=== PATIENT | male | born 1945 | race Caucasian/White ===

== ENCOUNTER → 2018-06-28 | Outpatient (CLI) | payer MEDICARE, OTHER ==
[~2018-06-28] MED LIST: ASPI325EC PO; CARV6.25 PO; FURO40 PO; GLIP5 PO; Lisinopril2.5 MG PO; NOVOLIN N SC; Novolin R100 UNIT/M SC; TRIHYD5075 PO
[2018-06-28 15:44] LABS: Albumin, Blood 3.8 g/dL (3.4-5.0); BASOPHILS ABSOLUTE AUTO 0.07 K/mm3 (0.00-0.23); BASOPHILS PERCENT AUTO 1 % (0-2); Bilirubin, Total 0.6 mg/dL (0.1-1.0); Bun/Creatinine Ratio 20.6 (12.0-20.0); Creatinine, Blood 2.14 mg/dL (0.60-1.20); EOSINOPHILS ABSOLUTE AUTO 0.15 K/mm3 (0.00-0.68); EOSINOPHILS PERCENT AUTO 2 % (0-6); Globulin, Blood 3.8 g/dL (2.2-4.0); Hematocrit 44.9 % (37.0-53.0); Hemoglobin 16.5 g/dL (13.5-17.5); IMMATURE GRAN ABSOLUTE AUTO 0.07 K/mm3 (0.00-0.10); IMMATURE GRAN PERCENT AUTO 1 % (0-1); LYMPHOCYTES ABSOLUTE AUTO 2.09 K/mm3 (0.84-5.20); LYMPHOCYTES PERCENT AUTO 22 % (21-46); MONOCYTES ABSOLUTE AUTO 0.91 K/mm3 (0.16-1.47); MONOCYTES PERCENT AUTO 10 % (4-13); Mean Corpuscular HGB 32.7 pg (26.0-34.0); Mean Corpuscular HGB Conc 36.7 g/dL (31.5-36.5); Mean Corpuscular Volume 89 fL (80-100); NEUTROPHILS ABSOLUTE AUTO 6.27 K/mm3 (1.96-9.15); NEUTROPHILS PERCENT AUTO 66 % (41-73); Platelet Count 150 K/mm3 (150-400); Potassium, Blood 5.1 mmol/L (3.5-5.5); RDW Coefficient Variation 12.6 % (11.7-14.2); RDW Standard Deviation 40.6 fL (35.1-46.3); Red Blood Cell Count 5.05 M/mm3 (4.30-5.90); Total Protein, Blood 7.6 g/dL (6.4-8.2); White Blood Cell Count 9.56 K/mm3 (4.00-11.30)
[2018-06-28 16:36] LABS: Mean Platelet Volume 13.8 fL (9.1-12.4)
== END ==
LOC: LAB EV 15:30 → LAB SHORT 15:30
PROVIDERS: Emergency Medicine
DX: E11.65 Type 2 diabetes mellitus with hyperglycemia (principal)
CPT/HCPCS: 80053; 83036; 85025

== ENCOUNTER 2021-11-26 07:23 | Day surgery (SDC) | payer MEDICARE, BC ==
[~2021-11-26] VITALS: Ht 175.3 cm; Wt 98.0 kg
[2021-11-26] MEDS ORDERED: ELIQUIS5 M2 PO (07:47)
[2021-11-26] MEDS ORDERED: BASAGLAR K100 UNIT/1 SC (07:47)
[2021-11-26] MEDS ORDERED: ATOR40TA PO (07:47)
[2021-11-26] MEDS ORDERED: FARXIGA10 MG PO (07:48)
[2021-11-26] MEDS ORDERED: Isosorbide Mono30 MG PO (07:48)
[2021-11-26] MEDS ORDERED: DHEA25 M1 PO (07:49)
[2021-11-26] MEDS ORDERED: REPA2 PO (07:50)
[2021-11-26] MEDS ORDERED: TORSE20 PO (07:51)
[2021-11-26] MEDS ORDERED: ENTRESTO 24 MG1 EACH PO (07:51)
--- NOTE | 2021-11-26 09:00 | NUR ---
PT BACK TO RECOVERY ROOM VIA RECLINER AFTER PROCEDURE. LEFT CHEST SITE CLEAN AND DRY, NO BLEEDING OR SWELLING. PT AWAKE AND ALERT, COFFEE GIVEN PER REQUEST.
--- NOTE | 2021-11-26 10:04 | NUR ---
PT EATING BREAKFAST, DENIES PAIN OR NEEDS. VSS, SPOUSE SITTING NEXT TO PATIENT. CALL LIGHT IN REACH.
--- NOTE | 2021-11-26 10:50 | NUR ---
IV DC'D, CATH INTACT. PT AND SPOUSE GIVEN DC INSTRUCTIONS AND FOLLOW UP INFO, CERBALIZED UNDERSTANDING. LEFT CHEST SITE REMAINS CLEAN AND DRY, PT DENIES DISCOMFORT AT SITE. OUT TO CAR VIA WHEELCHAIR.
== END 2021-11-26 10:50 | disposition home or self-care (01) ==
LOC: MHTC 07:23
DX: Z45.018 Encounter for adjustment and management of other part of cardiac pacemaker (principal); I48.19 Other persistent atrial fibrillation; I50.9 Heart failure, unspecified; N18.9 Chronic kidney disease, unspecified; E11.22 Type 2 diabetes mellitus with diabetic chronic kidney disease; Z88.8 Allergy status to other drugs, medicaments and biological substances; Z79.01 Long term (current) use of anticoagulants; Z79.899 Other long term (current) drug therapy
CPT/HCPCS: 33227; 99152; 99153; C1781; C1786; J0690; J1644; J2250; J3010; J7040

== ENCOUNTER → 2022-02-19 | Outpatient (CLI) | payer MEDICARE, BC ==
[~2022-02-19] MED LIST changes: +ATOR40TA PO; +BASAGLAR K100 UNIT/1 SC; +DHEA25 M1 PO; +ELIQUIS5 M2 PO; +ENTRESTO 24 MG1 EACH PO; +FARXIGA10 MG PO; +Isosorbide Mono30 MG PO; +REPA2 PO; +TORSE20 PO
[2022-02-19 12:36] LABS: BASOPHILS ABSOLUTE AUTO 0.05 K/mm3 (0.00-0.23); BASOPHILS PERCENT AUTO 1 % (0-2); EOSINOPHILS ABSOLUTE AUTO 0.07 K/mm3 (0.00-0.68); EOSINOPHILS PERCENT AUTO 1 % (0-6); Hemoglobin 14.7 g/dL (13.5-17.5); IMMATURE GRAN ABSOLUTE AUTO 0.01 K/mm3 (0.00-0.10); IMMATURE GRAN PERCENT AUTO 0 % (0-1); LYMPHOCYTES ABSOLUTE AUTO 1.68 K/mm3 (0.84-5.20); LYMPHOCYTES PERCENT AUTO 26 % (21-46); MONOCYTES ABSOLUTE AUTO 0.67 K/mm3 (0.16-1.47); MONOCYTES PERCENT AUTO 11 % (4-13); Mean Corpuscular HGB Conc 34.2 g/dL (31.5-36.5); Mean Corpuscular Volume 94 fL (80-100); NEUTROPHILS ABSOLUTE AUTO 3.91 K/mm3 (1.96-9.15); NEUTROPHILS PERCENT AUTO 61 % (41-73); Platelet Count 108 K/mm3 (150-400); RDW Coefficient Variation 13.1 % (11.7-14.2); RDW Standard Deviation 44.6 fL (35.1-46.3); White Blood Cell Count 6.39 K/mm3 (4.00-11.30)
[2022-02-19 12:38] LABS: Appearance, Urine Clear (Clear); Bilirubin, Urine Neg (Neg); Blood, Urine Neg (Neg); Color, Urine Yellow (P-Yellow); Glucose Qualitative, Urine Neg (Neg); Ketones, Urine Neg (Neg); Leukocyte Esterase, Urine Neg (Neg); Nitrite, Urine Neg (Neg); Protein, Urine Neg (Neg); Source, Urine Clean Catch; Specific Gravity, Urine 1.015 (1.003-1.022); Urobilinogen, Urine NORM (Normal)
[2022-02-19 12:44] LABS: Mean Platelet Volume 13.6 fL (9.1-12.4)
[2022-02-19 13:12] LABS: Protein, Urine Random 9.6 mg/dL (0.0-11.9); Protein/Creat Ratio, Ur Random 0.1
[2022-02-19 13:13] LABS: Albumin, Blood 3.5 g/dL (3.4-5.0); Anion Gap 8 mmol/L (6-16); Blood Urea Nitrogen 35 mg/dL (8-24); Bun/Creatinine Ratio 22.6 (12.0-20.0); CO2, Blood 26 mmol/L (21-32); Calcium, Blood 8.6 mg/dL (8.5-10.1); Chloride, Blood 106 mmol/L (98-108); Creatinine, Blood 1.55 mg/dL (0.60-1.20); Glomerular Filtration Rate 46 (60-); Glucose, Blood 222 mg/dL (70-99); Phosphorus, Blood 3.2 mg/dL (2.5-4.9); Potassium, Blood 4.3 mmol/L (3.5-5.5); Sodium, Blood 140 mmol/L (136-145)
== END | disposition home or self-care (01) ==
LOC: LAB 10:48 → LAB SHORT 10:48
PROVIDERS: Internal Medicine Nephrology
DX: N18.31 Chronic kidney disease, stage 3a (principal)
CPT/HCPCS: 36415; 80069; 81003; 82570; 83970; 84156; 85025

== ENCOUNTER 2023-11-04 12:02 | Inpatient (IN) | payer MEDICARE, OTHER ==
[~2023-11-04] VITALS: Ht 175.3 cm; Wt 89.5 kg
[~2023-11-04 12:02] MED LIST changes: +CEFU500T30 PO; +DIGOX125 MC1 PO; +GUAI600T33 PO; +INSULANI SC; +SPIR25 PO; +THERA-D2000 UNIT PO; +TRIDERM28.4 GM TOP; +VISBIOME 112.51 EACH PO
[2023-11-04 12:20] VITALS: BP 125/88
[2023-11-04] MEDS ORDERED: FISH OIL 1,0001 EA10 PO (12:31)
[2023-11-04] MEDS ORDERED: CINNAMON EXTRA500 MG PO (12:33)
[2023-11-04] MEDS ORDERED: COQ-10100 MG PO (12:34)
[2023-11-04] MEDS ORDERED: Acetaminophen 325 MG TABLET PO PRN (12:40)
--- NOTE | 2023-11-04 13:10 | NUR ---
arrival to pcu patient arrived to pcu via wheelchair and transfered to pcu bed independently. vital signs stable. tele afib pacec ventricular in the 90s. patient is alert and oriented x4. neuro is intact. perrla. patient denies numbness or tingling or headaches. patient denies pain, chest pain/pressure or shortness of breath at rest. reports minimal with exertion and has been improving. see admit shift assessment. home meds complete. admit is complete. cardio consult called in to md hayes at 1300 on 11/04/23.
[2023-11-04 13:27] LABS: BASOPHILS ABSOLUTE AUTO 0.07 K/mm3 (0.00-0.23); BASOPHILS PERCENT AUTO 1 % (0-2); EOSINOPHILS ABSOLUTE AUTO 0.12 K/mm3 (0.00-0.68); EOSINOPHILS PERCENT AUTO 1 % (0-6); Hematocrit 39.4 % (37.0-53.0); Hemoglobin 13.2 g/dL (13.5-17.5); IMMATURE GRAN ABSOLUTE AUTO 0.11 K/mm3 (0.00-0.10); IMMATURE GRAN PERCENT AUTO 1 % (0-1); LYMPHOCYTES ABSOLUTE AUTO 2.02 K/mm3 (0.84-5.20); LYMPHOCYTES PERCENT AUTO 23 % (21-46); MONOCYTES ABSOLUTE AUTO 1.28 K/mm3 (0.16-1.47); MONOCYTES PERCENT AUTO 14 % (4-13); Mean Corpuscular HGB 30.8 pg (26.0-34.0); Mean Corpuscular HGB Conc 33.5 g/dL (31.5-36.5); Mean Corpuscular Volume 92 fL (80-100); Mean Platelet Volume 11.9 fL (9.1-12.4); NEUTROPHILS ABSOLUTE AUTO 5.29 K/mm3 (1.96-9.15); NEUTROPHILS PERCENT AUTO 60 % (41-73); Platelet Count 233 K/mm3 (150-400); RDW Coefficient Variation 13.3 % (11.7-14.2); RDW Standard Deviation 44.9 fL (35.1-46.3); Red Blood Cell Count 4.28 M/mm3 (4.30-5.90); White Blood Cell Count 8.89 K/mm3 (4.00-11.30)
--- NOTE | 2023-11-04 13:30 | NUR ---
"Spiritual Care Visit | Pt. Request Pt. is awake and welcmoes my visit. Pt. is pleasant, and without much prompting verbalizes his committed Baptism bret. Facilitate a lengthy life review. Pt. displayed evidence of trust and hope. Pt. verbalized an expectation of having some sort of surgical procedure tomorrow. Pt. verbalized that his bret in [place] is what gives him peace regardless of the outcome. Prayed with the Pt. Pt. 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
[2023-11-04 14:15] LABS: Albumin, Blood 2.8 g/dL (3.4-5.0); Albumin/Globulin Ratio 0.7 (0.8-1.8); Bilirubin, Total 0.6 mg/dL (0.1-1.0); Bun/Creatinine Ratio 32.5 (12.0-20.0); Creatinine, Blood 1.54 mg/dL (0.60-1.20); Globulin, Blood 4.3 g/dL (2.2-4.0); Potassium, Blood 4.7 mmol/L (3.5-5.5); Total Protein, Blood 7.1 g/dL (6.4-8.2)
[2023-11-04 15:15] LABS: Digoxin (Lanoxin) 1.38 ug/mL (0.80-2.00)
[2023-11-04 15:31] VITALS: BP 127/88
[2023-11-04] MEDS ORDERED: Insulin Regular 100 UNIT/ML 10ML Vial SC SCH (16:30)
[2023-11-04 16:55] LABS: International Normalized Ratio 1.12; Prothrombin Time Results 11.9 Sec (9.7-11.5)
[2023-11-04 16:59] LABS: Anti-Xa UFH, PHA Monitoring 0.72 IU/mL
[2023-11-04] MEDS ORDERED: Ondansetron HCl 2 MG / ML 2ML Vial ONE (17:39)
--- NOTE | 2023-11-04 18:02 | NUR ---
shift summary plan is for patient to be npo at midnight for ricci cardioversion with a right and left heart cath tomorrow. md hayes spoke with the patient in detials and patient signed the consent. this rn updated the when she came back in. patient and verbalized understanding. patient ate 90% of dinner and than became naused and started throwing up. zofran given via iv and patient has relief from nausea and vomitting. no acute changes. plan is up to date. vitals remain stable. tele afib ventricle paced
[2023-11-04] MEDS ORDERED: Dose Adjust by Pharmacy XX STA (18:16)
[2023-11-04] MEDS ORDERED: Heparin Sodium,Porcine/0.5 NS 500 ML IV SCH (19:00)
[2023-11-04 20:07] VITALS: BP 111/70
[2023-11-04] MEDS ORDERED: Cefuroxime Axetil 250 MG Tab PO SCH (21:00)
[2023-11-04] MEDS ORDERED: GuaiFENesin 600 MG TabCR PO SCH (21:00)
[2023-11-04] MEDS ORDERED: Atorvastatin 10 MG Tab PO SCH (21:00)
[2023-11-04] MEDS ORDERED: Carvedilol 6.25 MG Tab PO SCH (21:00)
[2023-11-04] MEDS ORDERED: Lactobacil 2-S.Thermo-Bifido 1 1 Cap PO SCH (21:00)
[2023-11-04 23:48] VITALS: BP 97/62
[2023-11-05] VITALS (14 sets, daily range): BP systolic 92–122; BP diastolic 54–86
[2023-11-05 02:05] LABS: Bun/Creatinine Ratio 31.4 (12.0-20.0); Calcium, Blood 8.7 mg/dL (8.5-10.1); Creatinine, Blood 1.37 mg/dL (0.60-1.20); Potassium, Blood 4.5 mmol/L (3.5-5.5)
[2023-11-05 02:17] LABS: BASOPHILS ABSOLUTE AUTO 0.07 K/mm3 (0.00-0.23); BASOPHILS PERCENT AUTO 1 % (0-2); EOSINOPHILS ABSOLUTE AUTO 0.18 K/mm3 (0.00-0.68); EOSINOPHILS PERCENT AUTO 2 % (0-6); Hematocrit 37.9 % (37.0-53.0); Hemoglobin 12.7 g/dL (13.5-17.5); IMMATURE GRAN ABSOLUTE AUTO 0.11 K/mm3 (0.00-0.10); IMMATURE GRAN PERCENT AUTO 2 % (0-1); LYMPHOCYTES ABSOLUTE AUTO 2.52 K/mm3 (0.84-5.20); LYMPHOCYTES PERCENT AUTO 34 % (21-46); MONOCYTES ABSOLUTE AUTO 1.14 K/mm3 (0.16-1.47); MONOCYTES PERCENT AUTO 15 % (4-13); Mean Corpuscular HGB 30.8 pg (26.0-34.0); Mean Corpuscular HGB Conc 33.5 g/dL (31.5-36.5); Mean Corpuscular Volume 92 fL (80-100); NEUTROPHILS ABSOLUTE AUTO 3.42 K/mm3 (1.96-9.15); NEUTROPHILS PERCENT AUTO 46 % (41-73); Platelet Count 207 K/mm3 (150-400); RDW Coefficient Variation 13.2 % (11.7-14.2); RDW Standard Deviation 44.4 fL (35.1-46.3); Red Blood Cell Count 4.13 M/mm3 (4.30-5.90); White Blood Cell Count 7.44 K/mm3 (4.00-11.30)
[2023-11-05] MEDS ORDERED: Dose Adjust by Pharmacy XX STA ×2 (02:53→17:02)
--- NOTE | 2023-11-05 06:05 | NUR ---
SHIFT SUMMARY PATIENT ALERT AND ORIENTED X4. HAD NO COMPLAINTS OF PAIN OR SHORTNESS OF BREATH. PATIENT ON ROOM AIR WITH SPO2 >90%. VITAL SIGNS STABLE, NO EVENTS ON TELE. NO ACUTE ISSUES NOTED OVERNIGHT. WILL CONTINUE TO MONITOR. CALL LIGHT WITHIN REACH.
[2023-11-05] MEDS ORDERED: Benzocaine Oral Spray 0.5ML UD ONE (06:39)
[2023-11-05] MEDS ORDERED: NS 1,000 ML IV ONE ×2 (06:50→06:53)
[2023-11-05] MEDS ORDERED: Nitroglycerin 2 MG/20 ML BTL ONE (06:53)
[2023-11-05] MEDS ORDERED: NS 250 ML IV ONE (06:53)
[2023-11-05] MEDS ORDERED: Heparin Sodium 1000 Units/ML 10ML MDV ONE ×2 (06:53→08:30)
[2023-11-05] MEDS ORDERED: Verapamil HCL 2.5 MG/ML 2ML Injection ONE (06:57)
--- NOTE | 2023-11-05 07:05 | NUR ---
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
[2023-11-05] MEDS ORDERED: Ondansetron HCl 2 MG / ML 2ML Vial IV ONE (07:15)
[2023-11-05] MEDS ORDERED: Midazolam HCl 1MG / ML 2ML Vial ONE (08:26)
[2023-11-05] MEDS ORDERED: FentaNYL Citrate 50 MCG/ML 2 ML Injection ONE (08:26)
[2023-11-05] MEDS ORDERED: Cholecalciferol 1000 Unit Tablet (=25MCG) PO SCH (09:00)
[2023-11-05] MEDS ORDERED: Docosahexanoic Acid/EPA 1,000 MG CAP PO SCH (09:00)
[2023-11-05] MEDS ORDERED: Digoxin 0.125 MG Tab PO SCH (09:00)
[2023-11-05] MEDS ORDERED: Isosorbide Mononitrate 30 MG TABCR PO SCH (09:00)
--- NOTE | 2023-11-05 09:17 | NUR ---
PT REMAINS IN BOX PERSON
[2023-11-05] MEDS ORDERED: Ticagrelor 90 MG TABLET ONE (09:23)
[2023-11-05] MEDS ORDERED: Aspirin 325 MG Tab ONE (09:24)
--- NOTE | 2023-11-05 11:17 | NUR ---
PT BACK FROM BATH LAB
[2023-11-05] MEDS ORDERED: Mag Hydrox/AL Hydrox/Simeth 30 ML UDC PO PRN (12:40)
[2023-11-05] MEDS ORDERED: Heparin Sodium,Porcine/0.5 NS 500 ML IV SCH (17:05)
--- NOTE | 2023-11-05 18:23 | NUR ---
TR BAND IS FULLY RECOVERED, FULL ROM OF FINGERS, NO ACTIVE BLEEDING, NO HEMTOMA, STRONG PULSE RADIAL, DENIES PAIN. DENIES CP, REPORTS INTERMITTENT SOB THAT RESOLVES WITHOUT INTERVENTION, SPO2 REMAINS ABOVE 96% ON RA BUT ASKS FOR O2 TO BE PLACED FOR COMFORT, O2 WAS PLACED WHICH DID NOT SEEM TO DECREASE SOB BUT PROVIDED PT WITH COMFORT. PT WENT FOR ANGIO THIS AM AND CARDIOVERSION, CARDIOVERION WAS NOT PERFORMED DUE TO THROMBUS NOTED ON JAMA. HEPARIN WAS RESTARTED THIS EVENING, PT WILL REMAIN HERE UNTIL WEDNESDAY FOR 2nd STENT PLACEMENT IN RCA. PT IS 1 PERSON SBA TO BATHROOM. USES CALL LIGHT APPROPRIATELY.
[2023-11-05] MEDS ORDERED: Ticagrelor 90 MG TABLET PO SCH ×2 (21:00)
[2023-11-05] MEDS ORDERED: Insulin Glargine-Yfgn 100 Unit/mL 3 ML SYR SC SCH (21:00)
[2023-11-06] MEDS ORDERED: Dose Adjust by Pharmacy XX STA ×4 (01:20→23:03)
[2023-11-06 03:20] VITALS: BP 137/88
[2023-11-06] MEDS ORDERED: Pantoprazole Sodium 40 MG Tab PO SCH (06:00)
--- NOTE | 2023-11-06 06:41 | NUR ---
SHIFT SUMMARY PATIENT ALERT AND ORIENTED X4. HAD NO COMPLAINTS OF PAIN OR SHORTNESS OF BREATH. ON ROOM AIR WITH SPO2 >90%. VITAL SIGNS STABLE, NO EVENTS ON TELE. NO BRUSING OR BLEEDING NOTED AT ANGIO SITE. NO ACUTE ISSUES NOTED OVERNIGHT, WILL CONTINUE TO MONITOR. CALL LIGHT WITHIN REACH.
[2023-11-06 08:41] LABS: BASOPHILS ABSOLUTE AUTO 0.07 K/mm3 (0.00-0.23); BASOPHILS PERCENT AUTO 1 % (0-2); EOSINOPHILS ABSOLUTE AUTO 0.19 K/mm3 (0.00-0.68); EOSINOPHILS PERCENT AUTO 2 % (0-6); Hematocrit 38.3 % (37.0-53.0); IMMATURE GRAN ABSOLUTE AUTO 0.12 K/mm3 (0.00-0.10); IMMATURE GRAN PERCENT AUTO 1 % (0-1); LYMPHOCYTES ABSOLUTE AUTO 2.39 K/mm3 (0.84-5.20); LYMPHOCYTES PERCENT AUTO 27 % (21-46); MONOCYTES ABSOLUTE AUTO 1.04 K/mm3 (0.16-1.47); MONOCYTES PERCENT AUTO 12 % (4-13); Mean Corpuscular HGB Conc 33.9 g/dL (31.5-36.5); Mean Corpuscular Volume 91 fL (80-100); Mean Platelet Volume 11.7 fL (9.1-12.4); NEUTROPHILS ABSOLUTE AUTO 5.09 K/mm3 (1.96-9.15); NEUTROPHILS PERCENT AUTO 57 % (41-73); Platelet Count 231 K/mm3 (150-400); RDW Coefficient Variation 13.2 % (11.7-14.2)
[2023-11-06] MEDS ORDERED: Aspirin 81 MG Chew PO SCH ×2 (09:00)
[2023-11-06 09:04] LABS: Bun/Creatinine Ratio 21.5 (12.0-20.0); Calcium, Blood 8.7 mg/dL (8.5-10.1); Creatinine, Blood 1.3 mg/dL (0.60-1.20); Potassium, Blood 4.4 mmol/L (3.5-5.5)
[2023-11-06 12:01] VITALS: BP 109/95
[2023-11-06 16:35] VITALS: BP 112/72
--- NOTE | 2023-11-06 17:00 | NUR ---
PT RESTING WELL IN BED. HAS DENIED CP, CONTINUES TO HAVE RANDOM BOUTS OF SOB THAT RESOLVES WITHOUT INTERVENTION. HE REPORTS COUGH FEELS LIKE HE IS "BRINGING UP PHLEGM". HE CONTINUES TO USE 2L O2 NEEDED FOR COMFORT. PLAN REMAINS TO GO FOR ANGIO WEDNESDAY. DR PEREZ CAME IN THIS AFTERNOON TO FOLLOW-UP WITH PT TODAY. VSS. HEPARIN INFUSING AT 18U/KG/HR T/O THE DAY. FAMILY HAS BEEN IN TODAY AND WAS UPDATED.
[2023-11-06 19:30] VITALS: BP 127/73
--- NOTE | 2023-11-06 23:05 | NUR ---
UPDATE PER PHARMACY HEPARIN GTT ON HOLD D/T HIGH APTT. RN TO RESTART AT 0000
[2023-11-07] VITALS (7 sets, daily range): BP systolic 93–147; BP diastolic 66–85
[2023-11-07 06:15] LABS: BASOPHILS ABSOLUTE AUTO 0.07 K/mm3 (0.00-0.23); BASOPHILS PERCENT AUTO 1 % (0-2); EOSINOPHILS PERCENT AUTO 3 % (0-6); Hematocrit 35.9 % (37.0-53.0); Hemoglobin 11.9 g/dL (13.5-17.5); IMMATURE GRAN ABSOLUTE AUTO 0.13 K/mm3 (0.00-0.10); IMMATURE GRAN PERCENT AUTO 2 % (0-1); LYMPHOCYTES ABSOLUTE AUTO 1.78 K/mm3 (0.84-5.20); LYMPHOCYTES PERCENT AUTO 27 % (21-46); MONOCYTES ABSOLUTE AUTO 0.84 K/mm3 (0.16-1.47); MONOCYTES PERCENT AUTO 13 % (4-13); Mean Corpuscular HGB 30.8 pg (26.0-34.0); Mean Corpuscular HGB Conc 33.1 g/dL (31.5-36.5); Mean Corpuscular Volume 93 fL (80-100); Mean Platelet Volume 11.6 fL (9.1-12.4); NEUTROPHILS ABSOLUTE AUTO 3.49 K/mm3 (1.96-9.15); NEUTROPHILS PERCENT AUTO 54 % (41-73); Platelet Count 211 K/mm3 (150-400); RDW Coefficient Variation 13.2 % (11.7-14.2); RDW Standard Deviation 44.8 fL (35.1-46.3); Red Blood Cell Count 3.86 M/mm3 (4.30-5.90); White Blood Cell Count 6.51 K/mm3 (4.00-11.30)
--- NOTE | 2023-11-07 06:22 | NUR ---
SHIFT SUMMARY PT REMAINS A&O X4. PLEASANT AND COOPERATIVE WITH CARE. VSS; SBP 120 - 140'S, PACED/AFIB IN 80'S, AFEBRILE, REMAINS ON 2 LPM WITH SPO2 95-97%. NO EVENTS OF CP/PRESSURE, DIZZINESS, N/V. PT DOES ENDORSE DYSPNEA WITH ACTIVITY, AT TIMES EVEN AT REST. PT DOES ENDORSE "HAVING NO ENERGY" AND FEELING FATIGUED. NO C/O PAIN. ARMBOARD AND TEGADERM IN PLACE TO R RADIAL SITE. SITE WNL. SMALL AMOUNT OF BRUISING NOTED ABOVE SITE. PT CONTINUES WITH OCCASSIONAL COUGHING ESPECIALLY WITH QUICK MOVEMENT OF GETTING UP AND DOWN. OTHERWISE NO ACUTE EVENTS OVERNIGHT. HEPARIN INFUSING PER EMAR. PT USING RESTROOM INDEPENDENTLY/SBA (CORD MANAGEMENT AND SAFETY). REPORTS NO GI/ CONCERNS. ABLE TO MAKE NEEDS KNOWN, CALL LIGHT IN REACH. WILL UPDATE ONCOMING RN.
[2023-11-07 06:43] LABS: Bun/Creatinine Ratio 17.9 (12.0-20.0); Calcium, Blood 8.4 mg/dL (8.5-10.1); Creatinine, Blood 1.23 mg/dL (0.60-1.20); Potassium, Blood 4.3 mmol/L (3.5-5.5)
[2023-11-07] MEDS ORDERED: Dose Adjust by Pharmacy XX STA ×2 (07:20→14:54)
--- NOTE | 2023-11-07 18:15 | NUR ---
PT DEVELOPED HEMATURIA AT THE END OF THIS SHIFT, WITH SOME SCANT STREAKING NOTED IN TOILET BOWL WHEN VOIDING. DR NO WAS CALLED AND UPDATED ABOUT HEMATURIA, NO NEW ORDERS WERE OBTAINED. PT CONTINUES TO DENY CP, HE CONTINUES WITH INTERMITTENT SOB THAT WAXES AND WANES. HE INTERMITTENTLY USES 2L OF O2 FOR COMFORT NEEDED. HE CONTINUES TO HAVE MINIMAL APPETITE. HE IS UP TO BATHROOM SBA. VSS, WITH BP THAT IS SLIGHTLY SOFT AT END OF SHIFT. R WRIST REMAINS WELL RECOVERED WITHOUT ACTIVE BLEEDING. ABRASION TO HEAD THAT HE HAD PICKED LAST NOC HAS NOT BLED AGAIN TODAY, IT WAS DRESSED PT IS CONCERNED THAT IT MAY BLEED AND SOIL LINENS. HE WILL BE NPO AT MIDNIGHT FOR ANGIO IN THE AM, HE IS AWARE OF PENDING ANGIO AND NPO STATUS AT MIDNIGHT. OTHWERWISE HE HAS BEEN RESTING WELL IN BED T/O THE DAY. NADN. VSS. HE REMAINS IN PACED RHYTHM WITH AFIB, HE DID HAVE TWO EPISODES OF SHORT RUNS OF VTACH OF 4 AND 8 BEATS THAT HE REMAINED ASYMPTOMATIC DURING. HEPARIN WAS STOPPED THIS AM APTT WAS HIGH TWICE DURING THE EVENING, AFTER DOSE ADJUST THIS AM APTT HAS REVEALED THAT NO CHANGE IN HEPARIN INFUSION WAS NEEDED AFTER RESUMING THE RATE, AND WITH REDRAW THERE WAS ALSO NO CHANGE IN INFUSION RATE. HE HAD NO COMPLAINTS OF ACID REFLUX TODAY OR BLECHING WITH EATING HE HAD T/O THE WEEKEND.
--- NOTE | 2023-11-07 18:41 | NUR ---
DR PEREZ WAS IN TO SEE PATIENT. ORDERS PLACED TO STOP HEPARIN, STOP BRILITINA TONIGHT, LOAD WITH PLAVIX IN THE MORNING PRIOR TO THE PROCEDURE. WILL START ELIQUIS TOMORROW POST PROCEDURE, PER PHARMACY FURTHER COAGULATION STUDY WOULD BE NEEDED PRIOR TO STARTING TOMORROW, NURSE NOTIFY WAS PLACED FOR DAY SHIFT TOMORROW FOR ELIQUIS.
[2023-11-08] VITALS (16 sets, daily range): BP systolic 101–166; BP diastolic 72–103
--- NOTE | 2023-11-08 04:19 | NUR ---
SHIFT NOTE: PT A/OX4 ABLE TO MAKE NEEDS KNOWN AND USES THE CALL LIGHT APPROPRIATELY. HE IS ON TELE IN AFIB WITH PACED BEATS. HE DENIES CHEST PAIN/PRESSURE. HE HAS BEEN NPO SINCE 0000 FOR ANGIO THIS AM. HE IS ON RA WITH SPO2 >90%, DENIES SOB. HE IS CONT AND ABLE TO USE THE BATHROOM WITH 1P SBA. WILL CONTINUE TO MONITOR AND REPORT TO ONCOMING RN.
[2023-11-08] MEDS ORDERED: Clopidogrel Bisulfate 75 MG Tab PO ONE ×2 (07:00→18:05)
[2023-11-08] MEDS ORDERED: NS 250 ML IV ONE (13:51)
[2023-11-08] MEDS ORDERED: Verapamil HCL 2.5 MG/ML 2ML Injection ONE (13:51)
[2023-11-08] MEDS ORDERED: Nitroglycerin 2 MG/20 ML BTL ONE (13:52)
[2023-11-08] MEDS ORDERED: Heparin Sodium 1000 Units/ML 10ML MDV ONE ×3 (13:52→17:04)
[2023-11-08] MEDS ORDERED: NS 1,000 ML IV ONE ×2 (13:52→16:11)
[2023-11-08] MEDS ORDERED: FentaNYL Citrate 50 MCG/ML 2 ML Injection ONE (16:10)
[2023-11-08] MEDS ORDERED: Midazolam HCl 1MG / ML 2ML Vial ONE (16:11)
--- NOTE | 2023-11-08 17:01 | NUR ---
SHIFT SUMMARY: PT HAS BEEN A&Ox4 TODAY, COOPERATIVE W/CARE, ABLE TO MAKE NEEDS KNOWN, SBA FOR AMBULATION. 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 PT REPORTS INTERMITTENT SOB THAT RESOLVES, O2 SATS MAINTAINED >93% ON RA, PRN OXYGEN FOR COMFORT. PT DENIES CP, VSS, AFIB/VPACED ON MONITOR W/RATE 60s-70s. R RADIAL SITE WNL, BRUISING NOTED ABOVE SITE ON RFA. NO ABNORMAL BLEEDING THIS SHIFT.
[2023-11-08] MEDS ORDERED: Simethicone 80 MG Chew PO ONE (17:55)
[2023-11-08] MEDS ORDERED: Mag Hydrox/AL Hydrox/Simeth 30 ML UDC PO ONE (17:55)
--- NOTE | 2023-11-08 19:51 | NUR ---
1939: 2ML AIR REMOVED FROM RT TR BAND. NO S/S BLEEDING, NO PAIN. PT TOLERATED WELL. PT EDUCATED ON NEED TO CALL IF PAIN OR BLEEDING NOTED.
--- NOTE | 2023-11-08 20:39 | NUR ---
2000: 2ML AIR REMOVED. SITE REMAINS INTACT, NO PAIN.
--- NOTE | 2023-11-08 20:50 | NUR ---
2045: 2ML AIR REMOVED FROM TR BAND, SITE REMAINS INTACT.
--- NOTE | 2023-11-08 21:35 | NUR ---
2135: 2ML AIR REMOVED, SITE REMAINS INTACT.
--- NOTE | 2023-11-08 21:36 | NUR ---
2120: 2ML AIR REMOVED, SITE REMAINS INTACT. NO S/S BLEEDING/BRUISING/PAIN/SWELLING.
--- NOTE | 2023-11-08 23:07 | NUR ---
2245: LAST 3 ML OF AIR REMOVED FROM TR BAND FOR TOTAL OF 13ML. SITE REMAINS INTAKE. NO S/S SWELLING/BRUISING/BLEEDING/PAIN. TR BAND WILL REMAIN IN PLACE AT THIS TIME.
--- NOTE | 2023-11-08 23:44 | NUR ---
TR BAND REMOVED AND SITE DRESSED WITH TEGADERM. NO S/S BLEEDING/SWELLING/BRUISING/PAIN. ARM BOARD REPLIED AFTER REMOVAL OF TR BAND. PT WAS EDUCATED ON NOT USING RT. HAND/ARM FOR PUSHING/PULLING OR LIFTING. PT VERBALIZES UNDERSTANDING OF INSTRUCTIONS. WILL CONTINUE TO MONITOR RT RADIAL SITE.
[2023-11-09 00:01] VITALS: BP 113/86
--- NOTE | 2023-11-09 00:18 | NUR ---
RT RADIAL SITE STILL REMAINS INTACT. DRESSING CLEAN/DRY/INTACT. ARMBOARD REMAINS IN PLACE.
[2023-11-09 04:04] LABS: Hematocrit 34.6 % (37.0-53.0); Hemoglobin 11.6 g/dL (13.5-17.5); Mean Corpuscular HGB 30.9 pg (26.0-34.0); Mean Corpuscular HGB Conc 33.5 g/dL (31.5-36.5); Mean Corpuscular Volume 92 fL (80-100); Mean Platelet Volume 11.5 fL (9.1-12.4); Platelet Count 212 K/mm3 (150-400); RDW Coefficient Variation 13.2 % (11.7-14.2); RDW Standard Deviation 44.6 fL (35.1-46.3); Red Blood Cell Count 3.76 M/mm3 (4.30-5.90); White Blood Cell Count 5.97 K/mm3 (4.00-11.30)
[2023-11-09 04:38] LABS: Bun/Creatinine Ratio 14.1 (12.0-20.0); Calcium, Blood 8.6 mg/dL (8.5-10.1); Creatinine, Blood 1.28 mg/dL (0.60-1.20); Potassium, Blood 4.1 mmol/L (3.5-5.5)
[2023-11-09 04:50] VITALS: BP 136/68
--- NOTE | 2023-11-09 06:19 | NUR ---
PT STABLE THROUGHOUT SHIFT. NO COMPLICATIONS FROM TR BAND REMOVAL. RT RADIAL SITE REMAINS WNL AND IS DRESSED WITH TEGADERM. VITAL STABLE. PT REMAINS SBA/INDEPENDENT TO RESTROOM.
[2023-11-09 07:44] VITALS: BP 125/79
[2023-11-09] MEDS ORDERED: Apixaban 5 MG Tab PO SCH (09:00)
[2023-11-09] MEDS ORDERED: Clopidogrel Bisulfate 75 MG Tab PO SCH (09:00)
[2023-11-09] MEDS ORDERED: ASPI81CH PO (13:00)
[2023-11-09] MEDS ORDERED: JARDIANCE10 MG PO (13:00)
[2023-11-09] MEDS ORDERED: CLOP75 PO (13:00)
[2023-11-09] MEDS ORDERED: PANT20 PO (13:01)
--- NOTE | 2023-11-09 14:53 | NUR ---
PT HAS BEEN CLEARED FOR DISCHARGE. PIV HAS BEEN REMOVED WITH CATHETER INTACT. PT WAS ABLE TO DRESS SELF WITHOUT ANY ASSISTANCE. PT WAS PROVIDED WITH WRITTEN AND VERBAL DC INSTRUCTIONS AND VERBALIZES UNDERSTANDING AND DENIES ANY QUESTIONS OR CONCERNS. PT DISCHARGED VIA WHEELCHAIR WITH AND STAFF MEMBER.
== END 2023-11-09 14:53 | disposition home or self-care (01) | DRG 321 ==
LOC: PCU 12:02
PROVIDERS: Internal Medicine; ADMIT Family Medicine
PROC: 027034Z Dilation of Coronary Artery, One Artery with Drug-eluting Intraluminal Device, Percutaneous Approach (ICD-10-PCS; principal; 2023-11-05)
PROC: 02HQ32Z Insertion of Monitoring Device into Right Pulmonary Artery, Percutaneous Approach (ICD-10-PCS; 2023-11-05)
PROC: 4A133B3 Monitoring of Arterial Pressure, Pulmonary, Percutaneous Approach (ICD-10-PCS; 2023-11-05)
PROC: 4A1239Z Monitoring of Cardiac Output, Percutaneous Approach (ICD-10-PCS; 2023-11-05)
PROC: B241ZZ3 Ultrasonography of Multiple Coronary Arteries, Intravascular (ICD-10-PCS; 2023-11-05)
PROC: B2111ZZ Fluoroscopy of Multiple Coronary Arteries using Low Osmolar Contrast (ICD-10-PCS; 2023-11-05)
PROC: 4A023N7 Measurement of Cardiac Sampling and Pressure, Left Heart, Percutaneous Approach (ICD-10-PCS; 2023-11-05)
PROC: 027034Z Dilation of Coronary Artery, One Artery with Drug-eluting Intraluminal Device, Percutaneous Approach (ICD-10-PCS; 2023-11-08)
PROC: B241ZZ3 Ultrasonography of Multiple Coronary Arteries, Intravascular (ICD-10-PCS; 2023-11-08)
DX: I13.0 Hypertensive heart and chronic kidney disease with heart failure and stage 1 through stage 4 chronic kidney disease, or unspecified chronic kidney disease (principal); J18.9 Pneumonia, unspecified organism; I50.22 Chronic systolic (congestive) heart failure; I48.21 Permanent atrial fibrillation; I25.10 Atherosclerotic heart disease of native coronary artery without angina pectoris; I25.5 Ischemic cardiomyopathy; E11.22 Type 2 diabetes mellitus with diabetic chronic kidney disease; Z95.0 Presence of cardiac pacemaker; I42.0 Dilated cardiomyopathy; I34.0 Nonrheumatic mitral (valve) insufficiency; Z86.718 Personal history of other venous thrombosis and embolism; Z79.01 Long term (current) use of anticoagulants; D63.1 Anemia in chronic kidney disease; I49.5 Sick sinus syndrome; Z86.711 Personal history of pulmonary embolism; E78.5 Hyperlipidemia, unspecified; E66.9 Obesity, unspecified; Z87.891 Personal history of nicotine dependence; Z85.820 Personal history of malignant melanoma of skin; Z88.0 Allergy status to penicillin; Z88.8 Allergy status to other drugs, medicaments and biological substances; Z91.018 Allergy to other foods; Z79.899 Other long term (current) drug therapy; Z79.4 Long term (current) use of insulin; N18.32 Chronic kidney disease, stage 3b; Z68.29 Body mass index [BMI] 29.0-29.9, adult
CPT/HCPCS: 36415; 71045; 76937; 80048; 80053; 80162; 82947; 83880; 85025; 85027; 85347; 85520; 85610; 85730; 92978; 93005; 93010; 93312; 93325; 93454; 93460; 93571; 94660; 94762; 96365; 96366; 96375; 96376; 99152; 99153; A9270; C1725; C1753; C1769; C1874; C1887; C1894; C9600; G0378; J1644; J1815; J2250; J2405; J3010; J7030; J7050; Q9967

== ENCOUNTER 2025-01-25 08:59 | Emergency (ER) | payer MEDICARE, OTHER ==
[~2025-01-25] VITALS: Ht 175.3 cm; Wt 92.5 kg
[~2025-01-25 08:59] MED LIST changes: +ASPI325 PO; +ASPI81CH PO; +CINNAMON EXTRA500 MG PO; +CLOP75 PO; +COLCHICINE0.6 MG PO; +COQ-10100 MG PO; +FISH OIL 1,0001 EA10 PO; +JARDIANCE10 MG PO; +PANT20 PO
[2025-01-25] MEDS ORDERED: Ipratropium/Albuterol SulF 2.5-0.5MG/3 ML Amp INH ONE ×2 (09:20→12:20)
[2025-01-25 09:41] LABS: BASOPHILS ABSOLUTE AUTO 0.05 K/mm3 (0.00-0.23); BASOPHILS PERCENT AUTO 0 % (0-2); EOSINOPHILS ABSOLUTE AUTO 0.18 K/mm3 (0.00-0.68); EOSINOPHILS PERCENT AUTO 2 % (0-6); Hematocrit 40.6 % (37.0-53.0); Hemoglobin 13.4 g/dL (13.5-17.5); IMMATURE GRAN ABSOLUTE AUTO 0.05 K/mm3 (0.00-0.10); IMMATURE GRAN PERCENT AUTO 0 % (0-1); LYMPHOCYTES ABSOLUTE AUTO 1.41 K/mm3 (0.84-5.20); LYMPHOCYTES PERCENT AUTO 12 % (21-46); MONOCYTES ABSOLUTE AUTO 1.34 K/mm3 (0.16-1.47); MONOCYTES PERCENT AUTO 12 % (4-13); Mean Corpuscular HGB Conc 33.0 g/dL (31.5-36.5); Mean Corpuscular Volume 93 fL (80-100); NEUTROPHILS ABSOLUTE AUTO 8.57 K/mm3 (1.96-9.15); NEUTROPHILS PERCENT AUTO 74 % (41-73); NRBC ABSOLUTE 0.00 K/mm3 (0.00-0.02); NRBC Auto 0.0 /100 WBC (0.0-0.2); Platelet Count 115 K/mm3 (150-400); RDW Coefficient Variation 12.2 % (11.7-14.2); RDW Standard Deviation 41.9 fL (35.1-46.3)
[2025-01-25 10:01] LABS: Alanine Aminotransfer (ALT/SGP 19.0 U/L (12-78); Albumin, Blood 3.3 g/dL (3.4-5.0); Albumin/Globulin Ratio 0.9 (0.8-1.8); Anion Gap 5.0 mmol/L (3-11); Aspartate Aminotrans (AST/SGOT 17.0 U/L (12-37); Bilirubin, Total 1.1 mg/dL (0.1-1.0); Blood Urea Nitrogen 30.0 mg/dL (8-24); CO2, Blood 30.0 mmol/L (21-32); Calcium, Blood 8.7 mg/dL (8.5-10.1); Chloride, Blood 104.0 mmol/L (98-108); Creatinine, Blood 1.89 mg/dL (0.60-1.20); Globulin, Blood 3.5 g/dL (2.2-4.0); Glucose, Blood 217.0 mg/dL (70-99); Potassium, Blood 4.1 mmol/L (3.5-5.5); Sodium, Blood 135.0 mmol/L (136-145); Total Protein, Blood 6.8 g/dL (6.4-8.2)
[2025-01-25 10:05] LABS: Influenza A, PCR NEGATIVE (NEGATIVE); Influenza B, PCR NEGATIVE (NEGATIVE); Resp Syncytial Virus, PCR NEGATIVE (NEGATIVE); SARS-Cov-2 (COVID-19) PCR, MMC NEGATIVE (NEGATIVE)
[2025-01-25] MEDS ORDERED: Prednisone20 MG PO (17:55)
[2025-01-25] MEDS ORDERED: BUDESONIDE-FO10.2 G2 INH (17:55)
[2025-01-25 21:23] VITALS: BP 123/106
== END 2025-01-25 21:23 | disposition home or self-care (01) ==
LOC: ER 08:59
PROVIDERS: Emergency Medicine
DX: I31.39 Other pericardial effusion (noninflammatory) (principal); I10 Essential (primary) hypertension; E11.9 Type 2 diabetes mellitus without complications; Z91.018 Allergy to other foods; Z88.8 Allergy status to other drugs, medicaments and biological substances; Z79.01 Long term (current) use of anticoagulants; Z79.899 Other long term (current) drug therapy
CPT/HCPCS: 71045; 80053; 83880; 84484; 85025; 87637; 93005; 93010; 93306; 99285-25